=== PATIENT | female | born 1995 | race Caucasian/White ===

== ENCOUNTER 2017-11-03 20:53 | Emergency (ER) | payer OTHER ==
[2017-11-03 20:57] VITALS: BP 133/77; PULSE 94; TEMP 99.2; BMI 22.6
--- NOTE | 2017-11-03 20:58 | PDOC ---
Rapid Medical Evaluation Time Seen by Provider: 11/03/17 20:56 Medical Evaluation: Allergies Allergy/AdvReac Type Severity Reaction Status Date / Time No Known Allergies Allergy Verified 09/23/14 21:04 11/03/17 20:57 I have performed a brief in person evaluation of this patient. The patient presents with chief complaint of : 2 days h/o dysuria, urinary frequency and suprapubic tenderness Pertinent PE findings: mild suprapubic discomfort I have ordered the following: UA, Urine Cx The patient will proceed to the ER for further evaluation. Discharge Disposition - Diagnosis Dysuria - Referrals Referrals: Hima Sheldon [Primary Care Provider] - - Patient Instructions - Post Discharge Activity
[2017-11-03 21:18] LABS: URINE APPEARANCE CLOUDY; URINE BILIRUBIN NEGATIVE (<2.0 mg/dL); URINE COLOR YELLOW; URINE GLUCOSE (UA) NEGATIVE (NEGATIVE); URINE KETONE NEGATIVE (NEGATIVE); URINE NITRITE NEGATIVE (NEGATIVE); URINE UROBILINOGEN NEGATIVE mg/dL (0.2-1.0)
[2017-11-03 21:20] LABS: URINE LEUK ESTERASE 2+ (NEGATIVE); URINE PROTEIN 2+ (NEGATIVE)
[2017-11-03 21:24] LABS: EPI CELLS FEW /HPF (FEW)
--- NOTE | 2017-11-03 21:26 | PDOC ---
History of Present Illness - General Chief Complaint: Hematuria Stated Complaint: URINARY PROBLEM Time Seen by Provider: 11/03/17 20:56 - History of Present Illness Initial Comments: 22-year-old healthy female presents for evaluation of dysuria since last night. She states she has UTI. She's had a UTI in the past and these are similar symptoms. She has no other associated symptoms. 11/03/17 21:25 Past History - Past Medical History Allergies/Adverse Reactions: Allergies Allergy/AdvReac Type Severity Reaction Status Date / Time No Known Allergies Allergy Verified 11/03/17 20:57 Home Medications: Ambulatory Orders Amox-Tr/K Cl [Augmentin - 875Mg Tablet] 1 tab PO BID #20 tablet 11/03/17 Anemia: Yes COPD: No - Immunization History Immunization Up to Date: Yes - Suicide/Smoking/Psychosocial Hx Smoking Status: No Smoking History: Never smoked Number of Cigarettes Smoked Daily: 0 Hx Alcohol Use: Yes ("occasion") Drug/Substance Use Hx: No Substance Use Type: None Review of Systems - Review of Systems : Yes: Burning, Dysuria All Other Systems: Reviewed and Negative *Physical Exam - Vital Signs Last Vital Signs Temp Pulse Resp BP Pulse Ox 99.2 F 94 H 18 133/77 100 11/03/17 20:55 11/03/17 20:55 11/03/17 20:55 11/03/17 20:55 11/03/17 20:55 - Physical Exam Comments: HEAD: NC/AT EYES: Conjuntiva clear Ears: Canals and TM's normal NOSE: No d/c THROAT: Moist mucous membrances, oral pharanx clear, uvula midline NECK: Supple without adenopathy CARDIAC: S1 S2 LUNGS: CTA Full and Equal breath sounds ABDOMEN: Soft NT ND MS: Full ROM in all joints without edema NEUROLOGIC: No gross sensory or motor deficits, NVID SKIN: Normal color and temperature no lesions or rashes 11/03/17 21:25 ED Treatment Course - ADDITIONAL ORDERS Additional order review: Laboratory Results 11/03/17 20:50 Urine Color Yellow Urine Appearance Cloudy Urine pH 9.0 H D Ur Specific [place] 1.020 Urine Protein 2+ H Urine Glucose (UA) Negative Urine Ketones Negative Urine Blood 1+ H Urine Nitrite Negative Urine Bilirubin Negative Urine Urobilinogen Negative Ur Leukocyte Esterase 2+ H D Urine WBC (Auto) 109 Urine RBC (Auto) 101 Ur Epithelial Cells Few *DC/Admit/Observation/Transfer Diagnosis at time of Disposition: Dysuria, UTI (urinary tract infection) - Discharge Dispostion Disposition: HOME Condition at time of disposition: Stable Decision to Admit order: No - Prescriptions Prescriptions: Amox-Tr/K Cl [Augmentin - 875Mg Tablet] 1 tab PO BID #20 tablet - Referrals Referrals: Hima Sheldon [Primary Care Provider] - - Patient Instructions Printed Discharge Instructions: Urinary Tract Infection Additional Instructions: Take the antibiotics as directed. Return to the emergency room should symptoms worsen or go unresolved. Please follow-up with her primary care physician one to 2 days for further evaluation and treatment options. - Post Discharge Activity
== END 2017-11-03 21:44 | disposition home or self-care (01) ==
LOC: JERFT 20:53
DX: N39.0 Urinary tract infection, site not specified (principal); R30.0 Dysuria
CPT/HCPCS: 81003; 81015; 84703; 87086; 87186; 99281-25

== ENCOUNTER 2022-01-18 04:28 | Emergency (ER) | payer OTHER ==
[2022-01-18 04:41] VITALS: BP 90/66; PULSE 92; RESP 20; TEMP 98.2; BMI 22.6
[2022-01-18 06:01] LABS: PH,URINE 8.5 (5.0-8.0); URINE APPEARANCE CLEAR; URINE BILIRUBIN NEGATIVE (NEGATIVE); URINE COLOR YELLOW; URINE GLUCOSE (UA) NEGATIVE (NEGATIVE); URINE KETONE NEGATIVE (NEGATIVE); URINE LEUK ESTERASE NEGATIVE (NEGATIVE); URINE NITRITE NEGATIVE (NEGATIVE); URINE PROTEIN NEGATIVE (NEGATIVE)
[2022-01-18 06:03] LABS: HCG,QUALITATIVE URINE Negative
[2022-01-18] MEDS ORDERED: KETOROLAC TROMETHAMINE 30 MG/1 ML VIAL IM ONE (06:08)
[2022-01-18] MEDS ORDERED: KETOROLAC TROMETHAMINE 30 MG/1 ML VIAL ONE (06:42)
== END 2022-01-18 06:50 | disposition home or self-care (01) ==
LOC: JER 04:28
PROC: 3E0233Z Introduction of Anti-inflammatory into Muscle, Percutaneous Approach (ICD-10-PCS; principal; 2022-01-18)
DX: M54.50 Low back pain, unspecified (principal)
CPT/HCPCS: 0241U-QW; 81003; 84703; 99284-25

== ENCOUNTER 2022-02-25 00:19 | Emergency (ER) | payer OTHER ==
[2022-02-25 00:37] VITALS: RESP 18; TEMP 98.1; BMI 23.6
[2022-02-25 02:42] LABS: BASO % 0.9 % (0-2.0); EOS % 2.6 % (0-4.5); HEMATOCRIT 38.5 % (32.4-45.2); LYMPH % 35.7 % (8-40); MCH 33.2 pg (25.7-33.7); MCHC 33.8 g/dl (32.0-36.0); MEAN CELL VOLUME 98.2 fl (80-96); MEAN PLT VOLUME 6.5 fl (7.5-11.1); MONO % 6.9 % (3.8-10.2); NEUT % 53.9 % (42.8-82.8); PLATELET COUNT 330 10^3/uL (134-434); RBC 3.92 M/mm3 (3.60-5.2); RDW 13.2 % (11.6-15.6); WHITE BLOOD COUNT 6.2 K/mm3 (4.0-10.0)
[2022-02-25 02:51] LABS: PROTHROMBIN TIME (PATIENT) 11.5 SEC (9.7-13.0)
[2022-02-25 02:54] LABS: ACTIVATED PTT 26.5 SECONDS (25.2-36.5)
[2022-02-25 03:06] LABS: ALBUMIN 3.6 g/dl (3.4-5.0); BLOOD UREA NITROGEN 8.6 mg/dL (7-18)
[2022-02-25 03:09] LABS: CREATININE 0.7 mg/dL (0.55-1.3)
[2022-02-25 03:10] LABS: BILIRUBIN,TOTAL 0.8 mg/dL (0.2-1); TOT PROT 6.9 g/dl (6.4-8.2)
[2022-02-25 06:50] VITALS: BP 120/78; PULSE 86
== END 2022-02-25 07:00 | disposition home or self-care (01) ==
LOC: JER 00:19
DX: S06.0X9A Concussion with loss of consciousness of unspecified duration, initial encounter (principal); S29.012A Strain of muscle and tendon of back wall of thorax, initial encounter; W10.8XXA Fall (on) (from) other stairs and steps, initial encounter
CPT/HCPCS: 36415; 70450-TC; 70486-TC; 71260-TC; 72125-TC; 72128-TC; 72131-TC; 74177-TC; 80053; 84703; 85025; 85610; 85730; 99285-25; Q9967

== ENCOUNTER 2022-09-16 23:35 | Emergency (ER) | payer OTHER ==
[2022-09-16 23:42] VITALS: BP 138/93; PULSE 98; RESP 18; TEMP 98.8; BMI 22.6
[2022-09-17] MEDS ORDERED: AMOX TR/POT CLAV 875MG/125MG TABLETS (FP) PO ONE (00:32)
[2022-09-17] MEDS ORDERED: DIPHTH,PERTUSS(ACELL),TET 0.5 ML DISP.SYRIN IM ONE ×2 (00:32→00:36)
[2022-09-17] MEDS ORDERED: ACETAMINOPHEN 325 MG TABLET (FP) PO ONE (00:32)
[2022-09-17] MEDS ORDERED: AMOX TR/POT CLAV 875MG/125MG TABLETS (FP) ONE (00:35)
[2022-09-17] MEDS ORDERED: ACETAMINOPHEN 325 MG TABLET (FP) ONE (00:36)
== END 2022-09-17 01:29 | disposition home or self-care (01) ==
LOC: JER 23:35
PROC: 3E0234Z Introduction of Serum, Toxoid and Vaccine into Muscle, Percutaneous Approach (ICD-10-PCS; principal; 2022-09-17)
DX: S61.451A Open bite of right hand, initial encounter (principal); M79.641 Pain in right hand; W54.0XXA Bitten by dog, initial encounter
CPT/HCPCS: 73130-TC-RT-FY; 90471; 90715; 99283-25

== ENCOUNTER 2023-05-24 14:48 | Emergency (ER) | payer OTHER ==
[2023-05-24 14:53] VITALS: BP 133/87; PULSE 101; RESP 18; TEMP 97.9; BMI 22.6
[2023-05-24] MEDS ORDERED: AMOX TR/POT CLAV 875MG/125MG TABLETS (FP) ONE (15:38)
[2023-05-24] MEDS: AMOX TR/POT CLAV 875MG/125MG TABLETS (FP) PO ONE (15:40)
[2023-05-24] MEDS ORDERED: IBUPROFEN 400 MG TABLET (FP) PO ONE (16:24)
[2023-05-24] MEDS: IBUPROFEN 400 MG TABLET (FP) PO ONE (16:29)
== END 2023-05-24 17:03 | disposition home or self-care (01) ==
LOC: JERFT 14:48
DX: S91.351A Open bite, right foot, initial encounter (principal); W54.0XXA Bitten by dog, initial encounter; Y93.01 Activity, walking, marching and hiking
CPT/HCPCS: 99283-25

== ENCOUNTER 2023-07-18 22:04 | Emergency (ER) | payer OTHER ==
[2023-07-18 22:09] VITALS: BP 121/86; PULSE 86; RESP 17; TEMP 99.1; BMI 22.6
[2023-07-18 23:22] LABS: EPI CELLS >36 /uL (0-25.1); HYALINE CASTS 1 /uL (0-3.1); PH,URINE >= 9.0 (5.0-8.0); URINE APPEARANCE TURBID; URINE BACTERIA 1259 /uL (0-1359); URINE BILIRUBIN NEGATIVE (NEGATIVE); URINE COLOR YELLOW; URINE GLUCOSE (UA) NEGATIVE (NEGATIVE); URINE KETONE TRACE (NEGATIVE); URINE LEUK ESTERASE TRACE (NEGATIVE); URINE NITRITE NEGATIVE (NEGATIVE); URINE PROTEIN 2+ (NEGATIVE); URINE RBC 21 /uL (0-23.9); URINE WBC 49 /uL (0-25.8)
[2023-07-19 00:10] LABS: HCG,QUALITATIVE URINE Negative
[2023-07-19] MEDS ORDERED: CEPHALEXIN MONOHYDRATE 500 MG CAPSULE (UD) ONE (00:26)
[2023-07-19] MEDS: CEPHALEXIN MONOHYDRATE 500 MG CAPSULE (UD) PO ONE (00:30)
== END 2023-07-19 00:39 | disposition home or self-care (01) ==
LOC: JER 22:04
DX: N39.0 Urinary tract infection, site not specified (principal); R35.0 Frequency of micturition; R30.0 Dysuria; R10.9 Unspecified abdominal pain
CPT/HCPCS: 81003; 84703; 87086; 99283-25

== ENCOUNTER 2023-08-04 21:57 | Emergency (ER) | payer OTHER ==
[2023-08-04 22:02] VITALS: BP 116/81; PULSE 92; RESP 20; TEMP 97.7; BMI 22.6
[2023-08-04 22:38] LABS: URINE APPEARANCE CLEAR; URINE BILIRUBIN NEGATIVE (NEGATIVE); URINE COLOR YELLOW; URINE GLUCOSE (UA) NEGATIVE (NEGATIVE); URINE KETONE TRACE (NEGATIVE); URINE LEUK ESTERASE NEGATIVE (NEGATIVE); URINE NITRITE NEGATIVE (NEGATIVE); URINE PROTEIN NEGATIVE (NEGATIVE)
[2023-08-04 22:39] LABS: HCG,QUALITATIVE URINE Negative
[2023-08-04 23:14] LABS: EOS % 6.3 % (0-4.5); HEMATOCRIT 38.8 % (32.4-45.2); HEMOGLOBIN 13.5 GM/dL (10.7-15.3); LYMPH % 39.2 % (8-40); MCH 33.2 pg (25.7-33.7); MCHC 34.7 g/dl (32.0-36.0); MEAN CELL VOLUME 95.7 fl (80-96); MEAN PLT VOLUME 6.8 fl (7.5-11.1); MONO % 7.3 % (3.8-10.2); NEUT % 46.2 % (42.8-82.8); PLATELET COUNT 305 10^3/uL (134-434); RBC 4.06 M/mm3 (3.60-5.2); RDW 12.6 % (11.6-15.6); WHITE BLOOD COUNT 5.6 K/mm3 (4.0-10.0)
[2023-08-04 23:34] LABS: POTASSIUM 3.9 mmol/L (3.5-5.1)
[2023-08-04 23:36] LABS: BLOOD UREA NITROGEN 10.2 mg/dL (7-18); CALCIUM 8.9 mg/dL (8.5-10.1)
[2023-08-04 23:37] LABS: ALBUMIN 3.6 g/dl (3.4-5.0)
[2023-08-04 23:40] LABS: CREATININE 0.7 mg/dL (0.55-1.3)
[2023-08-04 23:41] LABS: BILIRUBIN,TOTAL 0.3 mg/dL (0.2-1); TOT PROT 7.1 g/dl (6.4-8.2)
== END 2023-08-04 23:54 | disposition home or self-care (01) ==
LOC: JERFT 21:57 → JER 21:57
DX: R30.0 Dysuria (principal); R35.0 Frequency of micturition; R39.15 Urgency of urination; R10.9 Unspecified abdominal pain
CPT/HCPCS: 36415; 80053; 81003; 84703; 85025; 87086; 99283-25